=== PATIENT | female | born 1970 | race Two or more races ===

== ENCOUNTER → 2017-10-23 | Day surgery (SDC) | payer BC | END | disposition home or self-care (01) | LOC: JRADUS-SUR 08:19 | PROVIDERS: ATTEND Student in an Organized Health Care Education/Training Program | PROC: 0HBT3ZX Excision of Right Breast, Percutaneous Approach, Diagnostic (ICD-10-PCS; principal; 2017-10-23) | DX: D24.1 Benign neoplasm of right breast (principal) | CPT/HCPCS: 19083; 87899; A4648 ==

== ENCOUNTER 2019-03-21 06:21 | Emergency (ER) | payer OTHER, BC | END 2019-03-21 08:10 | disposition home or self-care (01) | LOC: JER 06:21 ==